=== PATIENT | male | born 1960 | race Caucasian/White ===

== ENCOUNTER 2019-05-24 12:29 | Outpatient (CLI) | payer OTHER ==
[2019-05-24] MEDS ORDERED: FINA5TAB4 PO (16:02)
[2019-05-24] MEDS ORDERED: TAMS-11 PO (16:02)
== END 2019-05-24 23:59 | disposition home or self-care (01) ==
LOC: STAR 12:29
PROVIDERS: ATTEND Urology
DX: Z02.9 Encounter for administrative examinations, unspecified (principal)

== ENCOUNTER 2019-05-29 09:43 | Inpatient (IN) | payer OTHER ==
[~2019-05-29] VITALS: Ht 180.3 cm; Wt 89.3 kg
[~2019-05-29 09:43] MED LIST: FINA5TAB4 PO; TAMS-11 PO
[2019-05-29] MEDS ORDERED: LACTATED RINGERS 1,000 ML IV SCH (10:04)
[2019-05-29] MEDS ORDERED: DOXY100C2 PO (10:05)
[2019-05-29] MEDS ORDERED: MIDAZOLAM 1 MG/ML, 2ML ONE (10:11)
[2019-05-29 10:12] VITALS: BP 143/85
[2019-05-29] MEDS ORDERED: FENTANYL PF 250 MCG/5ML ONE (10:12)
[2019-05-29] MEDS ORDERED: CEFAZOLIN 1,000 MG ONE (10:19)
[2019-05-29] MEDS ORDERED: HYDROmorphone 2 MG/ML, 1ML IVPush PRN (10:30)
[2019-05-29] MEDS ORDERED: FENTANYL PF 100 MCG/2ML IV PRN (10:30)
[2019-05-29] MEDS ORDERED: PROMETHAZINE 25 MG/ML, 1ML IV PRN (10:30)
[2019-05-29] MEDS ORDERED: MEPERIDINE/PF 25MG/ML,1ML IVPush PRN (10:30)
[2019-05-29] MEDS ORDERED: ACETAMINOPHEN 325 MG TABLET PO PRN (10:30)
[2019-05-29] MEDS ORDERED: LIDOCAINE-MPF 1%, 2ML INFIL ONE (10:30)
[2019-05-29] MEDS ORDERED: ONDANSETRON 2MG/ML, 2ML IV PRN (10:30)
[2019-05-29] MEDS ORDERED: OXYcodone 5 MG/5 ML ORAL.SOL UDC PO PRN (10:30)
[2019-05-29] MEDS ORDERED: hydrALAzine 20 MG/ML, 1ML IV PRN (10:30)
[2019-05-29] MEDS ORDERED: LABETALOL 5MG/ML, 20ML IV PRN (10:30)
[2019-05-29] MEDS ORDERED: PROPOFOL 10 MG/ML, 20ML ONE (13:57)
[2019-05-29] MEDS ORDERED: ONDANSETRON 2MG/ML, 2ML ONE (13:57)
[2019-05-29] MEDS ORDERED: DEXAMETHASONE 4 MG/ML, 1ML ONE (13:57)
[2019-05-29] MEDS ORDERED: EPHEDRINE 50 MG/ML, 1ML ONE (14:22)
[2019-05-29] MEDS ORDERED: D5%-LACTATED RINGERS 1,000 ML IV SCH (15:10)
[2019-05-29] MEDS ORDERED: TEMAZEPAM 30 MG CAPSULE PO PRN (15:30)
[2019-05-29] MEDS ORDERED: OPIUM/BELLADONNA SUPP.RECT 16.2-30 MG PR PRN (15:30)
[2019-05-29] MEDS ORDERED: ONDANSETRON 2MG/ML, 2ML IVPush PRN (15:30)
[2019-05-29 18:07] LABS: ALBUMIN 3.8 g/dL (3.4-5.0); ANION GAP 8 mmol/L (5-15); CALCIUM 8.7 mg/dL (8.5-10.1); CHLORIDE 108 mmol/L (98-107); CREATININE 1.18 mg/dL (0.7-1.3)
[2019-05-29 20:00] VITALS: BP 147/67
[2019-05-29] MEDS: CIPROFLOXACIN 500 MG TABLET PO SCH (20:57)
[2019-05-29 23:11] VITALS: BP 120/61
[2019-05-30 04:05] VITALS: BP 102/60
[2019-05-30 08:00] VITALS: BP 120/69
[2019-05-30] MEDS ORDERED: FINASTERIDE 5 MG TABLET PO SCH (09:00)
[2019-05-30] MEDS: CIPROFLOXACIN 500 MG TABLET PO SCH (10:11)
[2019-05-30 12:35] VITALS: BP 123/70
== END 2019-05-30 13:15 | disposition home or self-care (01) | DRG 714 ==
LOC: OUT 09:43 → ORIP 15:10 → 3WST 16:30 → DCLOUNGE 05-30 13:10
PROVIDERS: ADMIT Urology; ATTEND Urology
PROC: 0VT08ZZ Resection of Prostate, Via Natural or Artificial Opening Endoscopic (ICD-10-PCS; principal; 2019-05-29 11:30)
DX: N40.1 Benign prostatic hyperplasia with lower urinary tract symptoms (principal); N32.0 Bladder-neck obstruction; Z90.49 Acquired absence of other specified parts of digestive tract; R33.8 Other retention of urine
CPT/HCPCS: 36415; 80048; 82040; 85018; 88305; G0378; J0690; J1100; J2250; J2405; J2704; J3010; J7120